=== PATIENT | female | born 1950 | race Caucasian/White ===

== ENCOUNTER 2018-09-29 09:34 | Outpatient (CLI) | payer MEDICARE | END 2018-09-29 09:35 | disposition home or self-care (01) | LOC: BICMAMMO 09:34 | PROVIDERS: ATTEND Internal Medicine | DX: Z12.31 Encounter for screening mammogram for malignant neoplasm of breast (principal) | CPT/HCPCS: 77063; 77067 ==

== ENCOUNTER 2022-07-18 09:35 | Outpatient (CLI) | payer MEDICARE | END 2022-07-18 09:36 | disposition home or self-care (01) | LOC: NM 09:35 | PROVIDERS: ATTEND Psychiatry & Neurology Neurology | DX: R26.89 Other abnormalities of gait and mobility (principal); R25.9 Unspecified abnormal involuntary movements; G31.89 Other specified degenerative diseases of nervous system; R94.02 Abnormal brain scan | CPT/HCPCS: 78803; A9584 ×2 ==